=== PATIENT | female | born 1995 | race Caucasian/White ===

== ENCOUNTER 2019-03-10 08:43 | Emergency (ER) | payer OTHER ==
[~2019-03-10] VITALS: Ht 152.4 cm; Wt 49.9 kg
[2019-03-10] MEDS ORDERED: NAPROXEN SODIU220 M1 PO (09:22)
[2019-03-11] MEDS ORDERED: CIPROFLOXACIN HC5 ML OPHT (13:40)
[2019-03-11] MEDS ORDERED: KETO10TA2 PO (13:40)
== END 2019-03-10 11:49 | disposition home or self-care (01) ==
LOC: ER 08:43
DX: H72.93 Unspecified perforation of tympanic membrane, bilateral (principal)

== ENCOUNTER 2019-03-11 13:31 | Emergency (ER) | payer OTHER ==
[~2019-03-11] VITALS: Ht 152.4 cm; Wt 52.2 kg
[~2019-03-11 13:31] MED LIST: NAPROXEN SODIU220 M1 PO
[2019-03-11] MEDS ORDERED: CIPROFLOXACIN HC5 ML OPHT (13:40)
[2019-03-11] MEDS ORDERED: KETO10TA2 PO (13:40)
== END 2019-03-11 16:21 | disposition home or self-care (01) ==
LOC: ER 13:31
DX: H72.2X2 Other marginal perforations of tympanic membrane, left ear (principal)

== ENCOUNTER 2022-09-03 19:38 | Emergency (ER) | payer OTHER ==
[~2022-09-03] VITALS: Ht 152.4 cm; Wt 53.5 kg
[~2022-09-03 19:38] MED LIST changes: +CIPROFLOXACIN HC5 ML OPHT; +KETO10TA2 PO
[2022-09-04] MEDS ORDERED: PEPCID AC20 MG PO (02:05)
[2022-09-04] MEDS ORDERED: CARAFATE1 GM PO (02:05)
[2022-09-04] MEDS ORDERED: PROTONIX20 MG PO (02:05)
== END 2022-09-04 02:11 | disposition home or self-care (01) ==
LOC: ER 19:38
DX: K29.70 Gastritis, unspecified, without bleeding (principal); Z91.013 Allergy to seafood; Z91.018 Allergy to other foods